=== PATIENT | female | born 1960 | race Caucasian/White ===

== ENCOUNTER 2018-12-04 14:51 | Inpatient (IN) | payer MEDICARE ==
[~2018-12-04] VITALS: Ht 167.6 cm; Wt 103.4 kg
--- NOTE | ~2018-12-04 | DS ---
[place], [place] DISCHARGE SUMMARY NAME: CIARA TUCKER UNIT #: [id number] ROOM: 310 DOCTOR: ZARIA ISAAC MD BIRTHDATE: [birth year] DOS: 12/10/2018 CHIEF COMPLAINT: "I am just depressed, I can't go on like this." HISTORY OF PRESENT ILLNESS: This is a 58-year-old white female who was transferred here from [facility]. The patient had been admitted there after an intentional drug overdose in an effort to commit suicide. Per her report, she took approximately 40-50 Flexeril 10 mg tablets in an effort to kill herself. She reports ongoing stressors and depression. The patient states this is her second suicide attempt in the last 6 months. Her major stressors include significant family discord and she feels that her adult son and blame her for everything that is going on in the house. She reports multiple neurovegetative symptoms including poor sleep with difficulty falling asleep, sleep continuity disturbance, early childhood education worker awakening, anergia, anhedonia, hopeless, helpless feelings, crying spells and inability to cope. She is admitted now to re-stabilize on medication, to engage in individual and keyes milieu activity, returning to the least restrictive environment when psychiatrically stable. SUMMARY OF HOSPITAL COURSE: The patient was admitted to the unit where her Cymbalta was discontinued due to ineffectiveness and Remeron 15 mg at bedtime was started. To help with the anxiety, she was started on Vistaril 25 mg 3 times a day, which was later increased to 50 mg 3 times daily in order to be more effective. The patient did have two family sessions, one with her son and and another just with her . The initial one did not go extremely well, but the second one was much more productive. Good communication was made and good plans for the future were made. The patient reported that the medications significantly improved her mood and she voiced a significant improvement. Sleep and appetite normalized. Her mood did brighten. She voiced positive plans for the future and no longer exhibited any depressive symptoms or suicidal or homicidal thoughts. She was discharged home then on 12/10/2018. MENTAL STATUS AT DISCHARGE: The patient is alert and oriented to person, place and time. Mood does seem to be strongly trending towards euthymia. Affect is more appropriate. There is no isidoro or hypomania. There is no gross psychosis. Short, intermediate and long-term memory are intact. FINAL DIAGNOSES UPON DISCHARGE: Major depression, recurrent, severe and dysthymic disorder as well as borderline personality disorder. DISPOSITION: All of her medications have been e-scribed to [facility]. At the time of discharge, she is medically and psychiatrically stable. Aftercare has been arranged in the community. [place], [place] DISCHARGE SUMMARY NAME: CIARA TUCKER UNIT #: [id number] ROOM: 310 DOCTOR: ZARIA ISAAC MD BIRTHDATE: [birth year] ZARIA ISAAC MD CM:DISCHARG 6 4 ZARIA ISAAC MD 12/10/1824 interface
--- NOTE | ~2018-12-04 | WRIGHTHP ---
[place], [place] PATIENT HISTORY AND PHYSICAL EXAM NAME: CIARA TUCKER UNIT #: [id number] ROOM: 314 DOCTOR: ZARIA ISAAC MD BIRTHDATE: [birth year] DOS: 12/05/2018 CHIEF COMPLAINT: "I am just so depressed, I can't go on like this." HISTORY OF PRESENT ILLNESS: This is a 58-year-old white female who was transferred here from [facility]. The patient had been admitted to [facility] after an intentional drug overdose in an effort to commit suicide. The patient took approximately 40-50 Flexeril 10 mg tablets in an effort to kill herself. She reports ongoing stressors and a long history of depression. This is her second suicide attempt in the last 6 months. Her major stressors include significant family discord, including her and her adult son who has moved into their house with his fiancee. She reports that the family constantly blames her for everything that is going wrong with the family and she cannot handle the stress. During this period of time, she endorses multiple neurovegetative symptoms that include poor sleep with difficulty falling asleep, sleep continuity disturbance, waste water plant operator awakening, anergia, anhedonia, hopeless, helpless feelings, crying spells, and inability to cope. Currently, she endorses suicidal thoughts, but does not have a plan here and is actively seeking help. She is admitted now to rule out further organic factors to attempt to re-stabilize on medication, to engage in individual and keyes milieu activities, returning to the least restrictive environment when psychiatrically stable. PAST MEDICAL HISTORY: Remarkable for asthma, chronic pain, hypertension, GERD, hyperlipidemia, obesity. SOCIAL HISTORY: She does not smoke cigarettes, drink alcohol or use illicit drugs. STRENGTHS: Ambulatory, good verbal skills. WEAKNESSES: Significant family discord, poor coping skills, chronic depression. MENTAL STATUS: She is alert and oriented to person, place, and time. Mood is overwhelmingly depressed. Affect is flat, blunted, and constricted. She endorses multiple neurovegetative symptoms as well as positive suicidal thoughts. There is no symptom suggestive of hypomania or isidoro. There are no auditory or visual hallucinations. No delusions, no paranoia. Memory is intact. DIAGNOSIS: Major depression, recurrent, severe and dysthymic disorder, rule out AXIS II issues. PLAN: I have already discontinued her Cymbalta in lieu of Remeron 15 mg at bedtime. I will add Vistaril 25 mg 3 times daily to impact positively on her anxiety level without utilizing an addictive agent. We will consult Dr. Patric Saunders for counseling services and to begin a therapeutic relationship with the patient. We will engage in individual and keyes milieu activity, returning then to the least restrictive environment when psychiatrically stable. [place], [place] PATIENT HISTORY AND PHYSICAL EXAM NAME: CIARA TUCKER UNIT #: [id number] ROOM: [facility] DOCTOR: ZARIA ISAAC MD BIRTHDATE: [birth year] ZARIA ISAAC MD CM:HISPHYS:PATIENT HISTORY AND PHYSICAL EXAMINATION 7 8 ZARIA ISAAC MD 12/05/18 0938 interface
--- NOTE | ~2018-12-04 | PR ---
[place], [place] PROGRESS NOTE NAME: CIARA TUCKER UNIT #: [id number] ROOM: 314 DOCTOR: ZARIA ISAAC MD BIRTHDATE: [birth year] DOS: 12/06/2018 CHIEF COMPLAINT: "I think I slept better. I have a family meeting scheduled for tomorrow." SUMMARY OF THE VISIT: The patient was interviewed in the dining area. She engaged readily in conversation, reporting that she is sleeping better with the new medicine and she is starting to feel a little bit better and more hopeful. She convincingly denies medication side effects. MENTAL STATUS: She is alert and oriented. Mood does seem to be starting to trend towards euthymia. Affect is much more appropriate. There is no symptom suggestive of hypomania or isidoro. There are no gross psychotic symptoms. While she still has fleeting suicidal thoughts, she has no plan and is hopeful now that she is going to get better. Memory is intact. PLAN: Her vitamin B12 level is low at 174. She has already received a dose of vitamin B12 injection 1000 mcg. I will change this to 1000 mcg IM monthly. Her vitamin D level is low at 24.7. I will increase her vitamin D supplementation from 2000 IUs daily to 5000 IUs daily. Maintain her Remeron at 15 mg at bedtime, engage in individual and keyes milieu activity, returning to the least restrictive environment when psychiatrically stable. ZARIA ISAAC MD CM:PNTRANS [id number] ZARIA ISAAC MD 12/06/18 1212 interface
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
--- NOTE | ~2018-12-04 | PR ---
[place], [place] PROGRESS NOTE NAME: CIARA TUCKER UNIT #: [id number] ROOM: 310 DOCTOR: ZARIA ISAAC MD BIRTHDATE: [birth year] DOS: 12/08/2018 CHIEF COMPLAINT: "I had a rough family session, I am going to have another one, I hope this one goes better." SUMMARY OF THE VISIT: The patient was interviewed as she was sitting in the dining area. She reports that she does feel that her current antidepressant is working better than the previous one, but is overwhelmed with multiple situational issues. She does report ongoing marital conflict and family discord. Some of this does seem to be rooted in her access to issues, which seems to be very prominent. The patient denies current suicidal thoughts, but I do see mood lability based solely on her access to issues. MENTAL STATUS: She is alert and oriented. Mood does seem to be trending towards euthymia. Affect is more appropriate. There is no isidoro, hypomania or psychosis. Memory for the most part is intact. DIAGNOSIS: Borderline personality disorder. PLAN: The patient does have ongoing personality issues, which complicate her mood status. Much of her mood lability I do believe is based on the access to issues and not truly bipolar disorder. I will go ahead and increase her hydroxyzine; however, from 25 mg 3 times a day to 50 mg 3 times a day to decrease some of the situational stress. I do not think she needs ongoing psychotherapy to develop more positive communication skills and coping mechanisms. We will maintain her antidepressant as is, proceed with another family session, engage in individual and keyes milieu activity, returning to the least restrictive environment when psychiatrically stable. Above note reviewed. Agree with observations, recommendations, and overall treatment plan. ZARIA ISAAC MD CM:PNTRANS [id number] ZARIA ISAAC MD 12/31/18 1619 interface
--- NOTE | ~2018-12-04 | PN ---
[place], [place] PROGRESS NOTE NAME: CIARA TUCKER UNIT #: [id number] ROOM: 310 DOCTOR: ZARIA ISAAC MD BIRTHDATE: [birth year] DATE: 12/09/18 ADDENDUM: Resident note reviewed. Agree with observations, recommendations, and overall treatment plan. ZARIA ISAAC MD CM:PNTRANS [id number] ZARIA ISAAC MD 01/01/19 1519 FABBY CHAPA MIS.R
--- NOTE | ~2018-12-04 | PR ---
[place], [place] PROGRESS NOTE NAME: CIARA TUCKER UNIT #: [id number] ROOM: 310 DOCTOR: ZARIA ISAAC MD BIRTHDATE: [birth year] DOS: 12/07/2018 CHIEF COMPLAINT: "I think I am feeling better." SUMMARY OF THE VISIT: The patient was interviewed as she was sitting in the dining area. She smiled as I approached. She did report that she is nervous about her upcoming family meeting, but otherwise is feeling well with the medicines and is sleeping better than she did previously. She reports that she does feel that the medicines day by day are helping and is hoping that with a good family session under her belt, she will be able to return home shortly. MENTAL STATUS: She is alert and oriented. Mood does seem to be trending towards euthymia. Affect is more appropriate. There is no isidoro or hypomania. There is no gross psychosis. She denies suicidal thoughts, homicidal thoughts. She denies any other issues with the medicines themselves. Memory is intact. PLAN: I will maintain her current psychotropic regimen. We will proceed with a family session today and depending on how that session goes we will determine approximate discharge date. ZARIA ISAAC MD CM:PNTRANS [id number] ZARIA ISAAC MD 12/07/18 1509 interface
[2018-12-04] MEDS ORDERED: LOVASTATIN20 MG PO (15:06)
[2018-12-04] MEDS ORDERED: CYCLOBENZAPRINE10 MG PO (15:09)
[2018-12-04] MEDS ORDERED: CYMBALTA60 MG PO (15:10)
[2018-12-04] MEDS ORDERED: ZANTAC 150150 MG PO (15:10)
[2018-12-04] MEDS ORDERED: OXYBUTYNIN CHLO10 MG PO (15:10)
[2018-12-04 18:38] VITALS: BP 140/86
[2018-12-04 19:51] VITALS: BP 131/70
[2018-12-04 21:03] VITALS: BP 131/70
[2018-12-05 07:25] LABS: BASO # 0.1 10*3/uL (0.0-0.1); BASO % 0.7 % (0.0-1.0); EOS # 0.3 10*3/uL (0.0-0.4); EOS % 3.5 % (1.0-4.0); HEMOGLOBIN 12.6 g/dl (12.0-16.0); LYMPH # 2.2 10*3/uL (1.3-4.4); LYMPH % 30.6 % (27.0-41.0); MEAN CELL VOLUME 92.9 fl (81.0-99.0); MEAN CORPUSCULAR HGB CONC 32.3 g/dl (33.0-37.0); MEAN PLATELET VOLUME 11.2 fl (9.6-12.3); MONO # 0.6 10*3/uL (0.1-1.0); MONO % 9.1 % (3.0-9.0); NEUT # 3.9 10*3/uL (2.3-7.9); NEUT % 55.7 % (47.0-73.0); PLATELET COUNT AUTOMATED 186 10*3/uL (130-400); RED CELL DISTRI WIDTH 12.9 % (0-14.5); WHITE BLOOD COUNT 7.1 10*3/uL (4.8-10.8)
[2018-12-05 07:36] LABS: ALBUMIN 2.9 gm/dl (3.1-4.5); ALKALINE PHOSPHATASE 92 U/L (45-117); BUN 12 mg/dl (7-24); CHLORIDE 109 mmol/L (98-107); CHOLESTEROL 187 mg/dL (<200); CREATININE 0.72 mg/dL (0.55-1.02); HDL CHOLESTEROL 40 mg/dl (40-60); LDL CHOLESTEROL 111 mg/dL (9-159); SGOT/AST 20 IU/L (3-35); SGPT/ALT 32 U/L (12-78); SODIUM 143 mmol/L (136-145); TOTAL PROTEIN 6.2 gm/dL (6.4-8.2); TRIGLYCERIDES 179 mg/dl (<150); VLDL CHOLESTEROL 36 mg/dL (6-40)
[2018-12-05 07:39] LABS: BILIRUBIN NEGATIVE (NEGATIVE); BLOOD 3+ (NEGATIVE); COLOR YELLOW (YELLOW); GLUCOSE NEGATIVE (NEGATIVE); KETONE NEGATIVE (NEGATIVE); LEUKO ESTERASE NEGATIVE (NEGATIVE); NITRITE NEGATIVE (NEGATIVE); SPECIFIC GRAVITY 1.015 (1.005-1.030); UROBILINOGEN 0.2 E.U./dl (0.2-1.0)
[2018-12-05 07:44] VITALS: BP 118/58
[2018-12-05 09:55] LABS: CLARITY SL CLOUDY (CLEAR)
[2018-12-05 09:59] LABS: RBC 21-30 rbc/hpf (0-2)
[2018-12-05 10:00] LABS: BACTERIA 1+; MUCOUS 1+
[2018-12-05 10:50] LABS: VITAMIN D, 25-HYDROXY 24.7 ng/mL (30-100)
[2018-12-05 20:32] VITALS: BP 142/83
[2018-12-06 07:51] VITALS: BP 121/75
[2018-12-06] MEDS ORDERED: ATORVASTATIN CA10 M1 PO (09:45)
[2018-12-06] MEDS ORDERED: PROAIR HFA8.5 GM INH (13:29)
[2018-12-06 19:03] VITALS: BP 134/83
[2018-12-07 07:41] VITALS: BP 109/71
[2018-12-07 19:09] VITALS: BP 136/59
[2018-12-08 08:01] VITALS: BP 119/64
[2018-12-08 19:50] VITALS: BP 144/64
[2018-12-09 07:07] LABS: BASO # 0.1 10*3/uL (0.0-0.1); BASO % 1.3 % (0.0-1.0); EOS # 0.3 10*3/uL (0.0-0.4); EOS % 5.3 % (1.0-4.0); HEMATOCRIT 43.5 % (37.0-47.0); HEMOGLOBIN 13.9 g/dl (12.0-16.0); LYMPH % 36.1 % (27.0-41.0); MEAN CELL VOLUME 93.5 fl (81.0-99.0); MEAN CORPUSCULAR HGB 29.9 pg (27.0-31.0); MEAN PLATELET VOLUME 11.1 fl (9.6-12.3); MONO # 0.7 10*3/uL (0.1-1.0); MONO % 11.8 % (3.0-9.0); NEUT # 2.5 10*3/uL (2.3-7.9); NEUT % 45.1 % (47.0-73.0); PLATELET COUNT AUTOMATED 246 10*3/uL (130-400); RED BLOOD COUNT 4.65 10*6/uL (4.10-5.10); RED CELL DISTRI WIDTH 12.8 % (0-14.5); WHITE BLOOD COUNT 5.5 10*3/uL (4.8-10.8)
[2018-12-09 07:35] LABS: BUN 14 mg/dl (7-24); CHLORIDE 104 mmol/L (98-107); SODIUM 140 mmol/L (136-145)
[2018-12-09 07:36] LABS: CREATININE 0.78 mg/dL (0.55-1.02)
[2018-12-09 07:44] VITALS: BP 119/74
[2018-12-09 20:00] VITALS: BP 128/69
[2018-12-10 07:29] VITALS: BP 109/74
[2018-12-10] MEDS ORDERED: HYDROXYZINE PAM25 M1 PO (09:00)
[2018-12-10] MEDS ORDERED: B121000 MCG/1 IM (09:00)
[2018-12-10] MEDS ORDERED: VITAMIN D5000 UNI1 PO (09:00)
[2018-12-10] MEDS ORDERED: MIRTAZAPINE15 M2 PO (09:00)
== END 2018-12-10 15:55 | disposition home or self-care (01) | DRG 885 ==
LOC: 3N 14:51
PROVIDERS: Internal Medicine; ADMIT Psychiatry & Neurology Psychiatry
DX: F33.2 Major depressive disorder, recurrent severe without psychotic features (principal); F34.1 Dysthymic disorder; F60.3 Borderline personality disorder; F41.9 Anxiety disorder, unspecified; K21.9 Gastro-esophageal reflux disease without esophagitis; J45.909 Unspecified asthma, uncomplicated; E66.9 Obesity, unspecified; G89.29 Other chronic pain; E78.5 Hyperlipidemia, unspecified; R00.0 Tachycardia, unspecified; I10 Essential (primary) hypertension; Z90.49 Acquired absence of other specified parts of digestive tract; Z90.710 Acquired absence of both cervix and uterus; Z95.2 Presence of prosthetic heart valve; Z82.49 Family history of ischemic heart disease and other diseases of the circulatory system; Z83.3 Family history of diabetes mellitus; Z88.2 Allergy status to sulfonamides; Z79.899 Other long term (current) drug therapy